=== PATIENT | female | born 1985 | race Caucasian/White ===

== ENCOUNTER 2019-06-03 16:18 | Emergency (ER) | payer OTHER, SELFPAY ==
[2019-06-03 16:38] VITALS: BP 116/59; PULSE 58; RESP 20; TEMP 37.2; O2SAT 100
--- NOTE | 2019-06-03 16:41 | ED.URI ---
HPI - URI/Sore Throat General Chief Complaint: Upper Respiratory Infection Stated Complaint: Cough/sinus pressure Time Seen by Provider: 06/03/19 16:41 Source: patient and RN notes reviewed Mode of arrival: ambulatory Limitations: no limitations History of Present Illness HPI Narrative: Pt is a 34 y/o female who is a nonsmoker/nondrinker that presents to the with c/o congestion that started 5 days ago. She reports her child diagnosed today with Influenza B; and has associated fever, chills, rhinorrhea, sore throat, and a cough. Pt denies an ear ache, or wheezing. She reports a fever blister that started this morning. Pt denies any foreign or domestic travel. She declines treatment, ex for the fever blister. MD elicited complaint: nasal congestion Onset (ago): day(s) (5) Consistency: constant Relieving factors: nothing Associated symptoms: fever, chills, rhinorrhea, sore throat and cough Related Data Allergies Allergy/AdvReac Type Severity Reaction Status Date / Time No Known Allergies Allergy Verified 06/03/19 16:35 Review of Systems Review of Systems: Narrative: General/Constitutional: No weight loss. Reports fever, chills Eyes: N0: Redness,discharge EENT: No: Epistaxis,ear discharge, ear ache. Reports rhinorrhea, congestion, sore throat, cold sore Respiratory: Denies: Hemoptysis or wheezing. Reports cough Gastrointestinal: No Vomiting, Bleeding-rectal Skin: No Lumps, eruption Neurologic: No Focal Weakness,Sz Hematologic: Denies: Petechiae/Purpura Psychiatric: No: Suicida ideationl All Other Systems: Reviewed and Negative PMFSH Past Medical History Medical History (Updated 06/03/19 @ 16:59 by Lea Mir) No significant past medical history Surgical History Surgical History (Updated 06/03/19 @ 16:59 by Lea Mir) No significant past surgical history Social History Social History (Updated 06/03/19 @ 16:59 by Lea Mir) Smoking status: Never smoker Alcohol intake: never Comments At time of signature, agree with nursing past medical, surgical, social and family history. There is no relevant family history pertinent to the presenting complaint Exam Narrative: Exam Narrative: General Appearance: Well appearing, Well nourished EYE: PERRLA, Conjunctiva clear Ears: Auditory canal normal, TM normal Nose: Rhinorrhea, Mucousal erythema Mouth/Throat: MM moist, Uvula midline, no Pharyngeal erythema Neck: Supple, No adenopathy Respiratory: No respiratory distress, Breath sounds equal, Clear to auscultation Cardiovascular: RRR, No JVD Musculoskeletal: Non tender, Normal strength Skin: Warm, Dry Neurological: A&O x3, CN II-XII intact Psychiatric: Normal mood, Normal affect Course Vital Signs Vital signs: Vital Signs Temperature 99 F 06/03/19 16:38 Pulse Rate 58 L 06/03/19 16:38 Respiratory Rate 06/03/19 16:38 Blood Pressure 116/59 L 06/03/19 16:38 Pulse Oximetry 100 06/03/19 16:38 Temperature 99 F 06/03/19 16:38 Pulse Rate 58 L 06/03/19 16:38 Respiratory Rate 06/03/19 16:38 Blood Pressure 116/59 L 06/03/19 16:38 Pulse Oximetry 100 06/03/19 16:38 Discharge Plan Discharge Clinical Impression: Influenza-like illness Patient Disposition: Home, Self-Care Condition: Stable Prescriptions: New codeine-guaifenesin 10-100 mg/5 mL liquid 7.5 ml PO Q6H PRN (Reason: cough) Qty: 118 RF: 0 valacyclovir [Valtrex] 1 gram tablet 1,000 mg PO TID Qty: 3 RF: 1 Interventions: Discharge Disposition Last Done: 06/03/19 17:05 Follow-up/Referrals: UNKNOWN,DOCTOR [Primary Care Provider] - Discharge Date/Time: 06/03/19 17:05
== END 2019-06-03 17:05 | disposition home or self-care (01) ==
PROVIDERS: Emergency Provider Emergency Medicine
DX: R05 Cough (principal); J34.89 Other specified disorders of nose and nasal sinuses; R50.9 Fever, unspecified; J02.9 Acute pharyngitis, unspecified
CPT/HCPCS: 99203; G0463

== ENCOUNTER 2019-10-07 17:10 | Emergency (ER) | payer OTHER, SELFPAY ==
[2019-10-07 17:15] VITALS: BP 100/64; PULSE 86; RESP 20; TEMP 36.7; O2SAT 100
--- NOTE | 2019-10-07 17:30 | ED.GENADULT ---
HPI - General Adult General Chief complaint: Ear Stated complaint: FEVER/EAR PAIN Time Seen by Provider: 10/07/19 17:30 Source: patient and RN notes reviewed Mode of arrival: ambulatory Limitations: no limitations History of Present Illness HPI narrative: 34-year-old female complains of RIGHT otalgia, fever, and intermittent headache (not the worst of her like) for 1 day. Tylenol, last today at 15:45 with relief. Denies itching or drainage. No URI symptoms. No facial swelling. No rhinorrhea and nasal congestion. No high fevers (highest fever 100.0 Fahrenheit). No sore throat, drooling, neck or throat swelling. No chest pain or shortness of breath. Remains active. LMP 3 weeks ago. Remains active. The patient reports she have not been diagnosed with COVID-19. The patient reports she is not waiting for the results of a COVID-19 lab test. The patient reports she do not have fever, chills, weakness, fatigue, myalgia, or facial swelling. The patient reports she do not have a new or worsening cough or shortness of breath. Denies chest pain. The patient reports she do not have any rhinorrhea, congestion, sore throat, nausea, vomiting, abdominal pain, and diarrhea. Tolerating po intake well. Denies recent traveling. Denies concerns for COVID-19 or exposures been home with limited outdoor exposure except for essential household needs, work, and return home. At this time, patient is not suspected of having COVID-19. Some parts of this dictation were generated by voice recognition software and may contain typographical and/or grammatical inaccuracies. Related Data Allergies Allergy/AdvReac Type Severity Reaction Status Date / Time No Known Allergies Allergy Verified 06/03/19 16:35 Review of Systems Review of Systems: Narrative: CONSTITUTIONAL: Denies chills, sweats. Complains of low-grade fever. EYES: Denies visual changes, redness, discharge. ENT: Complains of RT otalgia. Denies sore throat, rhinorrhea, congestion. CARDIOVASCULAR: Denies chest pain, palpitations, edema. RESPIRATORY: Denies dyspnea, wheezing, cough. GASTROINTESTINAL: Denies abdominal pain, nausea, vomiting, diarrhea. GENITOURINARY: Denies dysuria, hematuria, abnormal discharge. SKIN: Denies rash or itching. MUSCULOSKELETAL: Denies acute back pain, joint pain, or myalgia. NEUROLOGIC: Denies numbness or focal weakness. Complains of intermittent GUY. PSYCHIATRIC: Denies anxiety or depression. All systems reviewed & are unremarkable except as noted in HPI and below. [facility] Past Medical History Medical History No significant past medical history Surgical History Surgical History No significant past surgical history Family History Family History (Updated 10/07/19 @ 17:40 by IRLANDA Delgado) Father Alive and well Mother Alive and well Grandparent Acute myocardial infarction Social History Social History (Updated 10/07/19 @ 17:41 by IRLANDA Delgado) Smoking status: Never smoker Second hand tobacco smoke exposure: No Alcohol intake: never Substance use: never Living arrangements: with family Occupation/Education: occupation Gender identity (if verbalized by the patient): Female Comments At time of signature, agree with nurse past medical, surgical, social, and family history. There is no relevant family history pertinent to the presenting complaint. Exam Narrative: Exam Narrative: GENERAL: This is a well-nourished, well-developed patient, in no apparent distress. Talks in full sentences and ambulates with steady gait without dyspnea. HEAD: normocephalic, atraumatic. EYES: PERRL. Sclera clear/white. Vision is grossly intact. EARS: External ears normal, auditory canals clear and without drainage, RT TM with mild redness and effusion, without perforation, bulging or drainage. LT TM pearly gooden with goo
== END 2019-10-07 17:46 | disposition home or self-care (01) ==
PROVIDERS: Emergency Provider Nurse Practitioner Family; PCP Family Medicine
DX: H92.01 Otalgia, right ear (principal)
CPT/HCPCS: 99213; G0463

== ENCOUNTER 2020-08-10 08:21 | Emergency (ER) | payer OTHER, SELFPAY ==
[2020-08-10 08:26] VITALS: BP 104/65; PULSE 55; RESP 16; TEMP 35.9; O2SAT 100
--- NOTE | 2020-08-10 08:26 | ED.URI ---
HPI - URI/Sore Throat General Chief Complaint: Upper Respiratory Infection Stated Complaint: Ear Pain,Sore Throat Time Seen by Provider: 08/10/20 08:26 Source: patient, family and RN notes reviewed Mode of arrival: ambulatory Limitations: no limitations History of Present Illness HPI Narrative: 35-year-old female presents to [facility] with complaints of right ear ear pain and a sore throat for 3 days. Pain woke her up last night. Denies nausea or vomiting. Denies fevers. Pain from the right ear radiating into the throat. Related Data Allergies Allergy/AdvReac Type Severity Reaction Status Date / Time No Known Allergies Allergy Verified 08/10/20 08:27 Review of Systems Review of Systems: All systems reviewed & are unremarkable except as noted in HPI and below Constitutional: Constitutional: Reports as per HPI, Denies chills, Denies fatigue, Denies fever(s) and Denies weakness Eyes: Eyes: Reports no additional eye complaints ENT: Reports as per HPI, Reports nasal congestion and Reports sore throat Comments: Right ear pain Cardiovascular: Cardiovascular: Reports no additional cardiovascular complaints and Denies chest pain Respiratory: Respiratory: Reports no additional respiratory complaints, Denies chest congestion, Denies cough, Denies dyspnea and Denies wheezing Gastrointestinal: Gastrointestinal: Reports no additional gastrointestinal complaints, Denies abdominal pain, Denies nausea and Denies vomiting Musculoskeletal: Musculoskeletal: Reports no additional musculoskeletal complaints and Denies back pain Integumentary/Breasts: Skin/Breast: Reports system reviewed and no additional complaints, except as docu Neurologic: Reports system reviewed and no additional complaints, except as documented, Denies dizziness and Denies headache(s) Psychiatric: Psychiatric: Reports no additional psychiatric complaints [facility] Past Medical History Medical History (Updated 08/10/20 @ 08:38 by Tatum Cabrera) No significant past medical history Surgical History Surgical History No significant past surgical history Family History Family History Father Alive and well Mother Alive and well Grandparent Acute myocardial infarction Social History Social History Smoking status: Never smoker Second hand tobacco smoke exposure: No Alcohol intake: never Substance use: never Gender identity (if verbalized by the patient): Female Comments At the time of my signature, I reviewed and agree with the nursing past medical, surgical, social, and family history. There is no relevant family history pertinent to the patient complaint. Exam Const: General: healthy appearing, no acute distress and alert Nutritional Appearance: well nourished Orientation/consciousness: patient oriented x3 Limitations: no limitations HENMT: Ears: external ears normal and TM abnormal bulging, wth effusion (Left) serous, with fluid behind the TM on the left and with loss of landmarks (Thick white fluid noted) on the right; not erythematous General nose exam: Normal external nose present and Nasal discharge present clear Face and sinus: normal facial exam Mouth: Yes lip normal and Yes moist mucous membranes Throat: uvula midline Eyes: Conjunctivae: conjunctivae normal Pupils: Equal, round and reactive pupils present Neck: Neck: normal visual inspection and no lymphadenopathy Chest: Chest palpation & inspection: normal inspection of the chest Resp: Effort & Inspection: normal respiratory effort and no use of accessory muscles Auscultation: clear to auscultation bilaterally, no crackles, no rales, no rhonchi and no wheezes Cardio: Rate: regular rate Rhythm: regular rhythm Skin: General skin exam: normal color Rashes: no rashes Neuro: General: patient oriented x3, moves all extr
== END 2020-08-10 08:39 | disposition home or self-care (01) ==
PROVIDERS: Emergency Provider Nurse Practitioner; PCP Family Medicine
DX: H66.001 Acute suppurative otitis media without spontaneous rupture of ear drum, right ear (principal); H65.02 Acute serous otitis media, left ear
CPT/HCPCS: 99213; G0463

== ENCOUNTER 2024-04-19 13:16 | Outpatient (CLI) | payer BC, SELFPAY ==
--- NOTE | ~2024-04-19 | MMUS_ITS ---
EXAMINATION: MM diagnostic josiah BI w mary, US breast BI complete HISTORY: Palpable right breast abnormality TECHNIQUE: Additional 3-D tomosynthesis images of the breasts were performed and synthetic 2-D images were generated. CAD analysis was submitted and interpreted. High resolution complete bilateral breas t ultrasound was performed. COMPARISON: None BREAST PARENCHYMAL COMPOSITION: Dense: The breasts are extremely dense, which lowers the sensitivity of mammography. FINDINGS: MAMMOGRAPHIC FINDINGS: There are no suspicious masses, calcifications or architectural distortion in either breast to sugges t malignancy. ULTRASOUND: Complete US of all 4 quadrants of the breast/s and retroareolar region was reviewed. Normal heterogen eous echotexture within both breasts without evidence for suspicious mass. IMPRESSION: 1. No evidence for malignancy in either breast. 2. Routine yearly screening mammogram and regular clinical breast examination are recommended. BI-RADS Category 1: Negative Reviewed, dictated and finalized at location A. [facility] IMPRESSION: 1. No evidence for malignancy in either breast. 2. Routine yearly screening mammogram and regular clinical breast examination a re recommended. BI-RADS Category 1: Negative
--- OUTSIDE RECORDS SUMMARY | 2024-04-19 13:20 | XMS_ITS | Clinical Summary ---
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 Gender Identity Not on file Sexual Orientation Not on file Plan of Treatment Health Maintenance Due Date Last Done Comments Hepatitis C Virus (HCV) Screening 1983 Hepatitis B Immunization (1 of 3 - 19+ 3-dose series) 2002 Pap Smear 2004 Cervical Cancer Screening (CCS) 2013 HPV/Cotest 2013 Discussion re Starting/Frequency of Mammograms 2023 Influenza Immunization (#1) 2023 SARS-COV-2 Immunization (2023- season) 2023 03/24/2021, 06/02/2020, 05/05/2020 Respiratory Syncytial Virus (RSV) Immunization (Adult) (1 - 1-dose 75+ series) 2058 DTaP/Tdap/Td Immunization Discontinued 06/25/2014 TdaP Immunization Completed 06/25/2014 Meningococcal Immunization (ACWY) Aged Out No longer eligible based on patient's age to complete this topic Pneumococcal Immunization Combined Aged Out No longer eligible based on patient's age to complete this topic Rotavirus Immunization Aged Out No lo nger eligible based on patient's age to complete this topic
--- OUTSIDE RECORDS SUMMARY | 2024-04-19 13:20 | XMS_ITS | Referral Summary ---
Author Organization [address] Address [address] [place] [id number] Care Team Providers Care Auditing Coder Name Role Phone No, Physician Primary Care Provider [phone] Encounters Date Type Department Care Team Description 04/12/2024 6:00 PM [facility]IAISON Office Visit [facility] at [address] [id number] Pattie Harry NP Acute pansinusitis, recurrence not specified (Primary Dx) from Last 3 Months Allergies No known active allergies Medications MULTIVITAMIN ORAL Take by mouth Active valACYclovir (VALTREX) 1 gram tablet TAKE 2 TABLETS BY MOUTH TWICE DAILY FOR 1 DAY 08/23/2018 Active amoxicillin-cla vulanate (Augmentin) 875-125 mg per tabletIndicatio ns:Acute pansinusitis, recurrence not specified Take 1 tablet by mouth 2 (two) times a day for 7 days 14 tablet 04/12/2024 Active Active Problems No known active problems Social History Tobacco Use Types Packs/Day Years Used Date Smoking Tobacco: Former Comments Unknown Sex and Gender Information Value Date Recorded Sex Assigned at Not on file Legal Sex Female 7:34 PM [facility]AL [facility]IA[facility] Gender Identity Not on file Sexual Orientation Not on file Last Filed Vital Signs Vital Sign Reading Time Taken Comments Blood Pressure 112/78 04/12/2024 5:46 PM [facility] Pulse 81 04/12/2024 5:46 PM [facility]AL [facility]IA[facility] Temperature 36.7 ??C (98 ??F) 04/12/2024 5:46 PM [facility]AL LIAISON Respiratory Rate 20 04/12/2024 5:46 PM [facility]IAISON Oxygen Saturation 99% 04/12/2024 5:46 PM [facility] LIAISON Inhaled Oxygen Concentration - - Weight 69.4 kg (152 lb 14.4 oz) 04/12/2024 5:46 PM [facility]AL LIAISON Height 172.7 cm (5' 8 ) 04/12/2024 5:46 PM REG[facility]AL LIAISON Body Mass Index 23.25 04/12/2024 5:46 PM [facility] LIAISON Plan of Treatment Not on file [place] [employer] [place] [employer] [place] Care Teams Auditing Coder Relationship Specialty Start Date End Date No, Physician PCP - General 07/20/22
--- OUTSIDE RECORDS SUMMARY | 2024-04-19 13:20 | XMS_ITS | Continuity of Care Document ---
Author Organization [facility] Address [address] [place] [address] Phone Care Team Providers Care Business Records Manager Name Role Phone Hany Church MD Unavailable Unavailable Allergies, Adverse Reactions, Alerts Substance Reaction Status Criticality No Known Allergies Active No Inform ation Medications Medication Instructions Dosage Effective Dates (start - stop) Status Comments MULTIVITAMINS (unknown strength) Not Available - Active Deshler 7.5 mg-325 mg tablet take 1 tablet by oral route every 4 - 6 hours as needed for pain 1 tablet - No Longer Active rx written for post-op---caba rg 05/03/2017 Aspirin Low Dose 81 mg tablet,delayed release take 1 tablet by oral route every day 81 MG - No Longer Active rx written for post--op---s urg 05/03/2017 Procedures Procedure Date Postop followup visit Postop followup visit Knee Arthscpy Meniscectomy Medial OR Lat eral Office/outpatient visit,est, mod 2017 MRI Lower Ext Any Joint WO Contrast Knee Xray Both Knees Standing AP 2016 Office/outpatient visit,new, low 2016 Body fluid cell/diffrntlcnt no bld Smear, stain & interpret, routine Exam, synovial fluid crystals 7 Cult specmn, bactr, no urn/bld/stl Advance Directives Directive Yes / No Effective Date File Name No Information Encounters Encounter Description Practice Location Reason(s) For Visit Diagnoses Date Provider Providers Copied on Encounter [facility], [address], [place], [id number], [place] tel:[phone] [facility] right knee pain (chief complaint) Status post lateral meniscectomy of right knee 8 Ranjit Leach. [address], [place], [id number] , [place]. tel: [phone] [facility], [address], [place], [id number], [place] tel:[phone] [facility] right knee pain (chief complaint) Status post lateral meniscectomy of right knee 8 Ranjit Leach. [address], [place], [id number] , [place]. tel: [phone] [facility], [address] [place] [address], [id number], tel:[phone] [facility] Tear of lateral meniscus of right knee, current, unspecified tear type, subsequent encounter 8 Ranjit Leach. [address], [place], [id number] , [place]. tel: [phone] [facility], [address], [place], [id number], [place] tel:[phone] [facility] No Information 8 Ranjit Leach. [address], [place], [id number] , [place]. tel:[phone] [facility], [address], [place], [id number], [place] tel:[phone] [facility] No Information 8 Ranjit Leach. [address], [place], [id number] , [place]. tel:[phone] [facility], [address] [place] [address], [id number], [place] tel:[phone] [facility] Tear of lateral meniscus of right knee, current, u 8 Ranjit Leach. [address], [place], [address] , . tel:[phone] Office/outpat ient visit,est, mod [facility], [address] [place] [address], [id number], tel:[phone] [facility] right knee pain (chief complaint) Tear of lateral meniscus of right knee, current, unspecified tear type, subsequent encounter 8 Ranjit Hany. [address], [place], [id number] , . tel:[phone] [facility], [address] [place] [address], [id number], tel:[phone] [facility] No Information 8 Ranjit Hany. [address], [place], [address] , . tel:[phone] Office/outpat ient visit,[facility], low [facility], [address] [place] [address], [id number], [phone] [facility] right knee pain (chief complaint) Pain in right knee 7 Ranjit Hany. [address], [place], [id number] , [place]. tel:[phone] [facility], [address] [place] [address], [id number], tel:[phone] [facility] No Information 7 Ranjit Hany. [address], [place], [id number] , . tel:[phone] Referring Provider: Hany Crane, [address] [place], [address] . tel:[phone] Family History Family Member Type Diagnosis Age At Onset No Information Payers Payer name Insurance type Covered republican ID Richard jaquez(s) [employer] [id number] Social History Type Description Quantity Date Captured Comments Alcohol Use Details Unknown Caffeine Use Details Unknown Tobacco Use Status Never smoked tobacco 2017 Smoking Status Never smoker Non-Smoking Tobacco Use Details : No Details Available : No Details Available Sex Female Vital Signs Date / Time: Height Weight BMI Pulse Rate Blood Pressure Temperature Respiratory Rate Body Surface Area Head Circumference Head Circ. Percentile Wt./Umesh. Percentile BMI percentile Pulse Ox Inhaled Ox 3:14 PM 68.00 in 62.868 kg (138.60 lbs) 21.0 7 kg/m eter (2) 67 /min 108/69 mm[Hg] 1.74 meter(2) Chief Complaint And Reason For Visit From encounter dated '06/22/2017 14:50'. right knee pain (chief complaint). Description: Ms Meza is a 32 year old female who complains of right knee pain. She presents with pain on the right side. She states that the symptoms have been acute traumatic and began 4 months ago. The symptoms occur occasionally. The problem is improving. Currently the patient states that the symptoms are mild. The pain is described as discomforting. Mague states that the symptoms are relieved by rest. Pertinent negatives include fever and chills. Mague is here for a post op follow up for her right knee following a knee arthroscopy meniscectomy (DOS 05/03/2017). She states that she is feeling very good and has began running in small amounts. Reason For Referral Reason For Referral No Information Plan Of Treatment Date Type Action Status Goal Tobacco cessation counseling completed Goal Tobacco cessation counseling completed Goal Tobacco cessation counseling completed Goal Tobacco cessation counseling completed Referral Referred To: Amandeep Galvan [address] [place] [address], [phone] Ordered: Referrals: Surgery. Amandeep Galvan. Assume care ordered Future Order: Lab Order CBC W/ A UTOMATED DIFFERENTIAL (CBC), Ordered on: Ordered Future Order: Lab Order ERYTHROC YTE SEDIMENTATION RATE (ESR), Ordered on: Ordered Future Order: Lab Order C REACTI VE PROT (CRP), Ordered on: Ordered Future Order: Lab Order RHEUMATO ID FACTOR SCREEN (RA), Ordered on: Ordered Future Order: Lab Order URIC ACI D (URIC), Ordered on: Ordered Future Order: Lab Order ANAEROBI C W AEROBIC CULT W GS (ANC), Ordered on: Ordered Future Order: Lab Order MARIANA, SY NOVIAL FLUID (CRYSF), Ordered on: Ordered Future Order: Lab Order GRAM STA IN (GS), Ordered on: Ordered Future Order: Lab Order CELL CT W REFLEX DIFF, BODY FL (CCBF), Ordered on: Ordered Future Order: Radiology Order Kn ee Xray Both Knees Standing AP ([id number]), Ordered on: Ordered History Of Present Illness Encounter Date Complaint History Of Prese nt Illness right knee pain Ms Meza is a 32 year old female who complains of right knee pain. She presents with pain on the right side. She states that the symptoms have been acute traumatic and began 4 months ago. The symptoms occur occasionally. The problem is improving. Currently the patient states that the symptoms are mild. The pain is described as discomforting. Mague states that the symptoms are relieved by rest. Pertinent negatives include fever and chills. Mague is here for a post op follow up for her right knee following a knee arthroscopy meniscectomy (DOS 05/03/2017). She states that she is feeling very good and has began running in small amounts. right knee pain Ms Meza is a 32 year old female who complains of right knee pain. She presents with pain on the right side. She states that the symptoms have been acute traumatic and began 3 months ago. She indicates the injury occurred during sports while running. Mague states that the symptoms began as the result of jogging. The symptoms occur rarely. The problem is better. Currently the patient states that the symptoms are mild. The pain is described as discomforting. The symptoms are aggravated by daily activities. Mague states that the symptoms are relieved by rest. Pertinent negatives include fever and chills. Mague is here today for a post op follow up after a right knee meniscectomy (DOS 05/03/2017). She states that she feels much better and would like to begin running again as soon as possible. right knee pain Ms Meza is a 31 year old female who complains of right knee pain. She presents with pain on the right side. She states that the symptoms have been acute non-traumatic and began 2 months ago. She indicates the injury occurred outside. Mague states that the symptoms began as the result of jogging. The symptoms occur intermittently. The problem is unchanged. Currently the patient states that the symptoms are mild-moderate. The symptoms occur continuously. The symptoms are aggravated by daily activities and exercise. Mague states that the symptoms are relieved by rest. Pertinent negatives include fever and chills. Mague is here today to review MRI results of her right knee. She states that she first noticed her pain 2 months ago while she was jogging, but cannot remember any specific event that would have caused an injury. right knee pain Ms Meza is a 31 year old female who complains of right knee pain. She presents with pain on the right side. She states that the symptoms have been acute non-traumatic and began 1 month ago. The symptoms occur constantly. The problem is worsening. The pain is described as pressure. The symptoms occur continuously. The symptoms are aggravated by daily activities, exercise and walking. Mague is here for pain in her right knee that began approximately 1 month ago. She states that she feels soreness and pressure in her right knee. She mentions that she runs regularly but hasn't been able to for the past 2 weeks due to the pain. Functional Status Date Functional Assessmen t No Information Instructions Date Instruction Additional Infor temitope Activity restriction s, signs and symptoms to report as well as wound care management were discussed with Mague in detail. She was instructed to continue with therapy and HEP. Pt will return for follow up as needed. All questions and concerns were addressed; pt understands and agrees. Related to Status post lateral meniscectomy of right knee Activity restriction s, signs and symptoms to report as well as wound care management were discussed with Mague in detail. She was instructed to continue with therapy and HEP. I am allowing her to bear weight as tolerated. Pt will return for follow up in 6 weeks or sooner if needed. All questions and concerns were addressed; pt understands and agrees. Related to Status post lateral meniscectomy of right knee The working diagnosi s and surgical treatment options were discussed with Mague. MRI results were reviewed and discussed with her. She elects to proceed with right knee arthroscopy . Goals, risks, and potential complications, and anticipated recovery time were discussed. Specific risks mentioned include, but are not limited to, infection, possible DVT, and failure of procedure to relieve symptoms. Questions were invited and answered, and Mague wishes to proceed. Related to Tear of lateral meniscus of right knee, current, unspecified tear type, subsequent encounter The working diagnosi s and discharge plan was discussed in detail with Mague. I aspirated her right knee in the office today. I have instructed her to continue icing her knee. We will schedule a follow up appointment after an MRI. All questions and concerns were addressed; pt understands and agrees with plan. Related to Pain in right knee Assessments Type Assessment Date assessment Status post lateral meniscectomy of right knee impression Doing well post meniscectomy Jun Patient Care Teams Name Effective Dates (start - stop) Status Members No Information
--- OUTSIDE RECORDS SUMMARY | 2024-04-19 13:20 | XMS_ITS | Data Portability ---
Author Organization [facility], Main Office Address [address] [place] [address] Assessment No assessment recorded. Plan of Treatment Reminders Order Date Submit Date Provider Last Modified By Organization Details Last Modified Time Details Appointments None recorded. Lab vitamin D3, 25-hydroxy, serum 2023 024 [email or web address] 2 [facility] (Lab), [address] [place], [address], 4 08:39:50 magnesium, serum or plasma 2023 024 [email or web address] 2 [facility] (Lab), [address] [place], [address], 4 08:39:51 vitamin B12 + folate, serum or blood 2023 024 [email or web address] 2 [facility] (Lab), [address] [place], [address], 4 08:39:51 lipid panel, serum 2023 024 [email or web address] 2 [facility] (Lab), [address] [place], [address], 4 08:39:51 CMP, serum or plasma 2023 024 [email or web address] 2 [facility] (Lab), [address] [place], [address], 4 08:39:51 CK (creatine kinase), total, serum 2023 024 [email or web address] 2 [facility] (Lab), [address] [place], [address], 4 08:39:51 TSH, serum or plasma 2023 024 [email or web address] 2 [facility] (Lab), [address] [place], [address], 4 08:39:51 CBC w/ auto diff 2023 024 [email or web address] 2 [facility] (Lab), [address] [place], [address], 4 08:39:51 HbA1c (hemoglobin A1c), blood 2023 024 [email or web address] 2 [facility] (Lab), [address] [place], [address], 4 08:39:51 Referral None recorded. Procedures None recorded. Surgeries None recorded. Imaging None recorded. Medication Orders valacyclovi r 1 gram tablet 2023 024 [employer] [id number], [address], [place], [id number], 4 17:04:20 Patient TargetsNo targets recorded. Patient InstructionsNo instructions recorded. Reason for Referral None Reported. Problems Name Problem SNOMED Code Status Onset Date Resolution Date Notes Provider Name and Address Organization Details Recorded Time Herpes labialis 1044582 Active 2022 Janae Cameron MD [address] [facility], [place] [address], [place], [address], [employer] 3 16:09:45 Screening for malignant neoplasm of cervix Active 2023 ZACK May [address] [facility], [address], [place], [address], [employer] [facility] [employer] [facility] 4 17:04:43 Family history of hyperlipidemia 321917616 Active 2023 her dad ZACK May [address], [address], [place], [address], [employer] 4 17:05:10 At increased risk of nutritional deficit 749064857 Active 2023 ZACK May [address], [address], [place], [address], [employer] 4 17:05:42 Adult health examination Active 2023 ZACK May [address], [address], [place], [address], [employer] 4 17:09:18 Problem Notes None recorded. Medical Equipment None Reported. Allergies No known drug allergies Medications Name Sig Start Date Stop Date Status Note LastModified by Organization Details LastModified Time azithromycin 250 mg tablet 08/27 completed Not Available Not Available Not Available valacyclovir 1 gram tablet TAKE 2 TABLETS BY MOUTH TWICE DAILY FOR 1 DAY active Not Available Not Available No t Available prednisone 20 mg tablet 08/27 completed Not Available Not Available Not Available amoxicillin 875 mg tablet TAKE 1 TABLET BY MOUTH EVERY 12 HOURS 09/30 completed Not Available Not Available Not Available tobramycin 0.3 % eye drops 08/27 completed Not Available Not Available Not Available albuterol sulfate HFA 90 mcg/actuatio n aerosol inhaler 08/27 completed Not Available Not Available Not Available fluticasone propionate 50 mcg/actuatio n nasal spray,suspen jose SHAKE LIQUID AND USE 2 SPRAYS IN EACH NOSTRIL DAILY 09/30 completed Not Available Not Available Not Available Ciprodex 0.3 %-0.1 % ear drops,suspen jose 10/09 completed Not Available Not Available Not Available Virtussin AC 10 mg-100 mg/5 mL oral liquid 08/27 completed Not Available Not Available Not Available Vitals Date Recorded Body mass index (BMI) Body mass index (BMI) Body height Body height Oxygen saturation Oxygen saturation in Arterial blood by Pulse oximetry Oxygen saturation Oxygen saturation in Arterial blood by Pulse oximetry Heart rate Heart rate Body temperature Body temperature Systolic blood pressure Diastolic blood pressure Systolic blood pressure Diastolic blood pressure Provider Name and Address Organization Details Last Updated DateTime 21.4 kg/m2 22.8 kg/m2 172.72 cm 172.72 cm 98 % 98 % 99 % 99 % 50 /min 74 /min 96.8 [degF] 97.2 [degF] 102 mm[Hg] 80 mm[Hg] 112 mm[Hg] 74 mm[Hg] Not Available [facility] 21:53:10 Date Recorded Body weight Body weight Provider Name and Address Organization Details Last Updated DateTime 05/18/2022 45305.52 g 34011.86 g Not Available [facility] 05/18/2022 21:53:11 Date Recorded Body weight Provider Name an d Address Organization Details Last Updated DateTime 11/22/2023 75409.67 g Tammy Olivas RN [facility] [employer] [facility] 11/22/2023 16:37:33 Date Recorded Body mass index (BMI) Body height Provider Name and Address Organization Details Last Updated DateTime 11/22/2023 22.2 kg/m2 173.99 cm Tammy Olivas RN [facility] [employer] [facility] 11/22/2023 16:37:38 Date Recorded Body temperature Provider Name a nd Address Organization Details Last Updated DateTime 11/22/2023 98.3 [degF] Tammy Olivas RN [facility] [employer] [facility] 11/22/2023 16:38:28 Date Recorded Heart rate Provider Name an d Address Organization Details Last Updated DateTime 11/22/2023 62 /min Tammy Olivas RN [facility] [employer] [facility] 11/22/2023 16:38:38 Date Recorded Oxygen saturation Oxygen saturation in Arterial blood by Pulse oximetry Provider Name and Address Organization Details Last Updated DateTime 11/22/2023 99 % 99 % KATHRINE Johnson [facility] [employer] [facility] 11/22/2023 16:38:40 Date Recorded Respiratory rate Provider Name a nd Address Organization Details Last Updated DateTime 11/22/2023 16 /min Tammy Olivas RN [facility] [employer] [facility] 11/22/2023 16:38:42 Date Recorded Systolic blood pressure Diastolic blood pressure Provider Name and Address Organization Details Last Updated DateTime 11/22/2023 96 mm[Hg] 70 mm[Hg] Tammy Olivas RN [employer] [facility] 11/22/2023 16:39:38 Social History None recorded. Functional Status None recorded. Mental Status None recorded. Family History Nothing Reported. Medical History No medical history recorded. Gynecological HistoryNo gynecological history recorded. Obstetrics History GPAL:G 0 P 0 0 0 0 Past Encounters Encounter ID Performer Location Encounter Start Date Encounter Closed Date Diagnosis/Indication Diagnosis SNOMED-CT Code Diagnosis ICD10 Code Diagnosis Note [id number] [facility] [address] [place] [address] 12/01/2020 00:00:00 12/02/2020 06:25:[id number] [place] [address] 09/30/2021 00:00:00 09/30/2021 21:28:39 [id number] ZACK May [address] [place] [address] 11/22/2023 16:30:17 11/22/2023 17:09:13 Herpes labialis 2401209 B00.1 At formerly [facility] risk of nutritional deficit 291992632 Z91.89 Family his tory of hyperlipidemia 369490432 Z83.49 Adult heal th examination 061464538 Z00.00 Health Concerns Section Related Observation LastModified by Organization Detai ls LastModified Time None Recorded Concern Status LastModified by Organization Details LastModified Time None Recorded Advance Directives Directive None Recorded Payers Encounter Date Sequence Insurance Name Policy Number Policy Bennett Covered Member ID Bennett Member ID Guarantor Name 11/22/2023 1 [place] [id number] Mague Meza [id number] Mague Meza Notes Date Note Type Note Provider Name and Address Organization Details Recorded Time 11/22/2023 text/html no changes .... no outbreaks ZACK May [address] [place] [address], [facility] [address], [place], [address], [facility] 12/05/2023 09:54:44 OBGyn Episode No OBEpisode recorded.
--- OUTSIDE RECORDS SUMMARY | 2024-04-19 13:20 | XMS_ITS | Clinical Summary ---
Author Organization [facility] [address] Address [address] [place] [address] Care Team Providers Care Senior Talent Management Consultant Name Role Phone No, Physician Primary Care Provider [phone] Allergies No known active allergies Medications MULTIVITAMIN ORAL Take by mouth Active valACYclovir (VALTREX) 1 gram tablet TAKE 2 TABLETS BY MOUTH TWICE DAILY FOR 1 DAY 08/23/2018 Active amoxicillin-cla vulanate (Augmentin) 875-125 mg per tabletIndicatio ns:Acute pansinusitis, recurrence not specified Take 1 tablet by mouth 2 (two) times a day for 7 days 14 tablet 04/12/2024 5 Active Active Problems No known active problems Encounters Date Type Department Care Team Description 04/12/2024 6:00 PM DIRECTOR OF EXHIBIT DEVELOPMENT Office Visit [facility] at [address] [address] Pattie Harry NP Acute pansinusitis, recurrence not specified (Primary Dx) from Last 3 Months Social History Tobacco Use Types Packs/Day Years Used Date Smoking Tobacco: Former Comments Unknown Sex and Gender Information Value Date Recorded Sex Assigned at Not on file Legal Sex Female 7:34 PM DIRECTOR OF EXHIBIT DEVELOPMENT Gender Identity Not on file Sexual Orientation Not on file Obstetrics History Last Filed Vital Signs Vital Sign Reading Time Taken Comments Blood Pressure 112/78 04/12/2024 5:46 PM DIRECTOR OF EXHIBIT DEVELOPMENT Pulse 81 04/12/2024 5:46 PM DIRECTOR OF EXHIBIT DEVELOPMENT Temperature 36.7 ??C (98 ??F) 04/12/2024 5:46 PM DIRECTOR OF EXHIBIT DEVELOPMENT Respiratory Rate 20 04/12/2024 5:46 PM DIRECTOR OF EXHIBIT DEVELOPMENT Oxygen Saturation 99% 04/12/2024 5:46 PM DIRECTOR OF EXHIBIT DEVELOPMENT Inhaled Oxygen Concentration - - Weight 69.4 kg (152 lb 14.4 oz) 04/12/2024 5:46 PM DIRECTOR OF EXHIBIT DEVELOPMENT Height 172.7 cm (5' 8 ) 04/12/2024 5:46 PM DIRECTOR OF EXHIBIT DEVELOPMENT Body Mass Index 23.25 04/12/2024 5:46 PM DIRECTOR OF EXHIBIT DEVELOPMENT Plan of Treatment Health Maintenance Due Date Last Done Comments Breast Cancer Screening-Mammogram 1983 Cervical Cancer Screening 1983 Depression Screening 1983 Hepatitis C Screening 1983 Varicella Vaccines (1 of 2 - 13+ 2-dose series) 1996 Hepatitis B Screening 2001 Regular Well Visit/Exam 18-64 2001 Covid-19 Vaccine (2023-2 5 season) 2023 03/24/2021, 06/02/2020, 05/05/2020 Influenza Vaccine (#1) 2023 DTaP/Tdap/Td Vaccine (2 - Td or Tdap) 06/25/2024 06/25/2014 HPV Vaccines Aged Out No longer eligi ble based on patient's age to complete this topic Pneumococcal vaccine <65 Aged Out No longer eligible based on patient's age to complete this topic Insurance [facility] Care Teams Senior Talent Management Consultant Relationship Specialty Start Date End Date No, Physician PCP - General 07/20/22
== END 2024-04-19 13:17 | disposition home or self-care (01) ==
PROVIDERS: Visit Provider Obstetrics & Gynecology
DX: N63.0 Unspecified lump in unspecified breast (principal)
CPT/HCPCS: 76641; 77062; 77066; G0279